=== PATIENT | female | born 1960 | race Caucasian/White ===

== ENCOUNTER 2023-03-27 09:16 | Outpatient (OUT) | payer BC, SELFPAY ==
--- NOTE | 2023-03-27 09:20 | MM_ITS ---
Patient: FANI ABERNATHY Exam Date: 03/27/2023 : 1960 Gender:F Ordering : DR. JAH PARKER . Admission #: [id number] Family : Order #: [id number] CLICK HERE TO VIEW EXAM RADIOLOGY REPORT PROCEDURE: MM TOMOSYNTHESIS SCREENING BI COMPARISON: MG MAMM SCREEN 3D LONG CAD, 03/25/2022. MG MAMM SCREEN 3D LONG CAD, 03/24/2021. MG MAMM SCREEN LONG W CAD, 03/17/2020. MG MAMM LONG SCRN W CAD DIG, 02/26/2013. INDICATIONS: Screening Calculator Name NCI Breast Cancer Risk Assessment Tool 5 Year Breast Cancer Risk 6.40% Lifetime Breast Cancer Risk 24.60% Personal Breast Cancer No Personal Ovarian Cancer No Treatments None Family Cancers Sister with breast cancer at age 59; Sister with breast cancer at age 50; Sister with cervical cancer at age 49; Father with lung cancer at age 75. LOCATION: [facility] BREAST COMPOSITION: Scattered areas fibroglandular density. FINDINGS: DIAGNOSTIC CATEGORY 1--NEGATIVE. RIGHT BREAST: No significant suspicious finding. No significant change has occurred. LEFT BREAST: No significant suspicious finding. No significant change has occurred. RECOMMENDATIONS: ROUTINE MAMMOGRAM AND CLINICAL EVALUATION IN 12 MONTHS. PLEASE NOTE: A NORMAL MAMMOGRAM DOES NOT EXCLUDE THE POSSIBILITY OF BREAST CANCER. A CLINICALLY SUSPICIOUS PALPABLE LUMP SHOULD BE BIOPSIED. Dictated by: Eze Griffith M.D. on 03/27/2023 at 14:28 Approved by: Eze Griffith M.D. on 03/27/2023 at 14:30
== END 2023-03-27 09:17 | disposition home or self-care (01) ==
LOC: MAMMO 09:16
PROVIDERS: PCP Family Medicine; Visit Provider Family Medicine
DX: Z12.31 Encounter for screening mammogram for malignant neoplasm of breast (principal); Z80.3 Family history of malignant neoplasm of breast; Z80.1 Family history of malignant neoplasm of trachea, bronchus and lung; Z80.49 Family history of malignant neoplasm of other genital organs
CPT/HCPCS: 77063; 77067

== ENCOUNTER 2024-03-28 10:08 | Outpatient (OUT) | payer OTHER, SELFPAY ==
--- NOTE | 2024-03-28 10:16 | MM_ITS ---
Patient Name: FANI ABERNATHY MR#: [id number] : 1960 Exam Date: 03/28/2024 Ordering Doctor: DR. JAH PARKER . RADIOLOGY REPORT PROCEDURE: MM TOMOSYNTHESIS SCREENING BI COMPARISON: MM TOMOSYNTHESIS SCREENING BI, 03/27/2023. MG MAMM SCREEN 3D LONG CAD, 03/25/2022. MG MAMM SCREEN 3D LONG CAD, 03/24/2021. MG MAMM LONG SCRN W CAD DIG, 02/26/2013. INDICATIONS: Screening for malignant neoplasm Calculator Name NCI Breast Cancer Risk Assessment Tool 5 Year Breast Cancer Risk 6.50% Lifetime Breast Cancer Risk 23.90% Personal Breast Cancer No Personal Ovarian Cancer No Treatments None Family Cancers Sister with breast cancer at age 59; Sister with breast cancer at age 50; Sister with cervical cancer at age 49; Father with lung cancer at age 75. LOCATION: [facility] BREAST COMPOSITION: There are scattered areas of fibroglandular density. FINDINGS: DIAGNOSTIC CATEGORY 1--NEGATIVE. RIGHT BREAST: No significant suspicious finding. No significant change has occurred. LEFT BREAST: No significant suspicious finding. No significant change has occurred. RECOMMENDATIONS: ROUTINE MAMMOGRAM AND CLINICAL EVALUATION IN 12 MONTHS. PLEASE NOTE: A NORMAL MAMMOGRAM DOES NOT EXCLUDE THE POSSIBILITY OF BREAST CANCER. A CLINICALLY SUSPICIOUS PALPABLE LUMP SHOULD BE BIOPSIED. Dictated by: Eze Griffith M.D. on 03/29/2024 at 13:58 Approved by: Eze Griffith M.D. on 03/29/2024 at 14:10
== END 2024-03-28 10:09 | disposition home or self-care (01) ==
PROVIDERS: PCP Family Medicine; Visit Provider Family Medicine
DX: Z12.31 Encounter for screening mammogram for malignant neoplasm of breast (principal); Z80.3 Family history of malignant neoplasm of breast; Z80.1 Family history of malignant neoplasm of trachea, bronchus and lung; Z80.49 Family history of malignant neoplasm of other genital organs
CPT/HCPCS: 77063; 77067